=== PATIENT | female | born 1955 | race Caucasian/White ===

== ENCOUNTER → 2019-02-06 | Outpatient (REF) | payer OTHER ==
[2019-02-06 16:34] LABS: CALCIUM LEVEL 9.7 MG/DL (8.8-10.2); FREE T4 0.79 NG/DL (0.76-1.46); THYROID STIMULATING HORMONE 1.8 uIU/ML (0.358-3.740)
[2019-02-06 17:18] LABS: TOTAL 25(OH) VITAMIN D 42.3 NG/ML (30.0-100.0)
== END ==
LOC: M LABDRAW1 15:33
PROVIDERS: ATTEND Nurse Practitioner Family
DX: M81.0 Age-related osteoporosis without current pathological fracture (principal); E05.00 Thyrotoxicosis with diffuse goiter without thyrotoxic crisis or storm

== ENCOUNTER → 2020-02-26 | Outpatient (CLI) | payer SELFPAY | LOC: M LABSMTC 15:41 | PROVIDERS: ATTEND Pediatrics | DX: Z11.59 Encounter for screening for other viral diseases (principal) ==

== ENCOUNTER → 2020-05-12 | Outpatient (CLI) | payer OTHER ==
[2020-05-12 16:08] LABS: CALCIUM LEVEL 9.4 MG/DL (8.8-10.2); FREE T4 0.91 NG/DL (0.76-1.46); THYROID STIMULATING HORMONE 1.74 uIU/ML (0.358-3.740)
[2020-05-12 16:10] LABS: TOTAL 25(OH) VITAMIN D 51.8 NG/ML (30.0-100.0)
== END ==
LOC: M PLALAB 13:16
PROVIDERS: ATTEND Nurse Practitioner Family
DX: M81.0 Age-related osteoporosis without current pathological fracture (principal); E05.00 Thyrotoxicosis with diffuse goiter without thyrotoxic crisis or storm

== ENCOUNTER 2020-10-16 17:29 | Emergency (ER) | payer OTHER ==
[~2020-10-16] VITALS: Ht 162.6 cm; Wt 57.8 kg
[2020-10-16 21:46] VITALS: BP 159/85
== END 2020-10-16 22:03 | disposition home or self-care (01) ==
LOC: M ED 17:29
DX: R21 Rash and other nonspecific skin eruption (principal); J45.909 Unspecified asthma, uncomplicated; E05.00 Thyrotoxicosis with diffuse goiter without thyrotoxic crisis or storm; Z88.0 Allergy status to penicillin; Z88.1 Allergy status to other antibiotic agents; Z88.2 Allergy status to sulfonamides; Z88.8 Allergy status to other drugs, medicaments and biological substances

== ENCOUNTER → 2021-01-26 | Outpatient (CLI) | payer OTHER ==
--- NOTE | 2021-01-26 16:43 | DEXAMM ---
INDICATION: AGE RELATED OSTEOPOROSIS. COMPARISON: 01/11/2019. TECHNIQUE: Bone density was measured using dual-energy x-ray absorptiometry (DEXA). FINDINGS: AP SPINE L1-L4 BMD 0.850 g/cm2 Young Adult T-Score -2.8 Age Matched Z-Score -1.3. LT FEMUR, TOTAL BMD 0.866 g/cm2 Young Adult T-Score -1.1 Age Matched Z-Score 0.0. LT NECK BMD 0.763 g/cm2 Young Adult T-Score -2.0 Age Matched Z-Score -0.6. RT FEMUR, TOTAL BMD 0.845 g/cm2 Young Adult T-Score -1.3 Age Matched Z-Score -0.2. RT NECK BMD 0.754 g/cm2 Young Adult T-Score -2.0 Age Matched Z-Score -0.7. IMPRESSION: There is osteoporosis of the spine. There is low bone density of the left hip. There is low bone density of the right hip. The density of the spine has increased 0.6% since the initial exam on 01/11/2019. The density of the left hip has increased 0.3% since initial exam on 01/11/2019. The density of the right hip has increased 0.2% since the initial exam on 01/11/2019. FOLLOW-UP: Recommendation for the next bone density exam: 2 years. <Electronically signed by Derrek Rajan > 01/26/21 1640
== END ==
LOC: M WHC 12:54
PROVIDERS: ATTEND Nurse Practitioner Family
DX: M81.0 Age-related osteoporosis without current pathological fracture (principal); M85.89 Other specified disorders of bone density and structure, multiple sites

== ENCOUNTER → 2021-01-26 | Outpatient (CLI) | payer OTHER ==
[2021-01-26 15:56] LABS: BLOOD UREA NITROGEN 18 MG/DL (7-18); CALCIUM LEVEL 9.6 MG/DL (8.8-10.2); CARBON DIOXIDE LEVEL 31 MEQ/L (21-32); CHLORIDE LEVEL 100 MEQ/L (98-107); CREATININE FOR GFR 0.68 MG/DL (0.55-1.30); GLOMERULAR FILTRATION RATE > 60.0 (>45); GLUCOSE, FASTING 97 MG/DL (70-100); POTASSIUM SERUM 4.8 MEQ/L (3.5-5.1); SODIUM LEVEL 136 MEQ/L (136-145)
[2021-01-26 16:10] LABS: TOTAL 25(OH) VITAMIN D 43.6 NG/ML (30.0-100.0)
== END ==
LOC: M PLALAB 13:31
PROVIDERS: ATTEND Nurse Practitioner Family
DX: M81.0 Age-related osteoporosis without current pathological fracture (principal)

== ENCOUNTER 2021-03-26 12:55 | Emergency (ER) | payer OTHER ==
[~2021-03-26] VITALS: Ht 162.6 cm; Wt 62.1 kg
[2021-03-26] MEDS ORDERED: SERT50TA29 PO (13:11)
[2021-03-26] MEDS ORDERED: GABA-282 (13:11)
[2021-03-26] MEDS ORDERED: OLOP0.1D (13:11)
[2021-03-26] MEDS ORDERED: OYST500T12 (13:11)
[2021-03-26] MEDS ORDERED: FLUTISP (13:11)
[2021-03-26] MEDS ORDERED: XIID5DRO (13:11)
[2021-03-26] MEDS ORDERED: D31000TA2 (13:11)
[2021-03-26] MEDS ORDERED: FEXO180T58 (13:11)
[2021-03-26] MEDS ORDERED: MULTTAB61 (13:11)
[2021-03-26] MEDS ORDERED: REFRSOL (13:11)
[2021-03-26] MEDS ORDERED: TETRACAINE 0.5% OPHTH SOLN 4ML OS ONE (14:05)
[2021-03-26] MEDS ORDERED: FLUORESCEIN OPHTH 1 MG STRIP OS ONE (14:05)
[2021-03-26 14:57] VITALS: BP 143/82
== END 2021-03-26 15:07 | disposition home or self-care (01) ==
LOC: M ED 12:55
DX: H57.12 Ocular pain, left eye (principal); F41.9 Anxiety disorder, unspecified; Z88.0 Allergy status to penicillin; Z88.1 Allergy status to other antibiotic agents; Z88.8 Allergy status to other drugs, medicaments and biological substances; Z79.899 Other long term (current) drug therapy

== ENCOUNTER → 2021-04-23 | Outpatient (CLI) | payer OTHER ==
[~2021-04-23] MED LIST: D31000TA2; FEXO180T58; FLUTISP; GABA-282; MULTTAB61; OLOP0.1D; OYST500T12; REFRSOL; SERT50TA29 PO; XIID5DRO
[2021-04-23 16:02] LABS: FREE T4 0.78 NG/DL (0.76-1.46); THYROID STIMULATING HORMONE 1.86 uIU/ML (0.358-3.740)
== END ==
LOC: M PLALAB 13:50
PROVIDERS: ATTEND Internal Medicine Endocrinology, Diabetes & Metabolism
DX: E05.00 Thyrotoxicosis with diffuse goiter without thyrotoxic crisis or storm (principal)

== ENCOUNTER → 2021-05-28 | Outpatient (CLI) | payer OTHER ==
[~2021-05-28] MED LIST changes: -D31000TA2; +FEXO-117; -FEXO180T58; -OLOP0.1D; +OLOP5DRO16; +VITA100093
== END ==
LOC: M WHC 08:28
PROVIDERS: ATTEND Family Medicine
DX: Z12.31 Encounter for screening mammogram for malignant neoplasm of breast (principal)

== ENCOUNTER 2021-07-20 13:36 | Emergency (ER) | payer OTHER ==
[~2021-07-20] VITALS: Ht 162.6 cm; Wt 62.6 kg
[2021-07-20 13:39] VITALS: BP 146/70
[2021-07-20] MEDS ORDERED: LIDOCAINE 2% MDV 20ML VIAL SC ONE (18:25)
== END 2021-07-20 19:07 | disposition home or self-care (01) ==
LOC: M ED 13:36
DX: S61.011A Laceration without foreign body of right thumb without damage to nail, initial encounter (principal); W26.8XXA Contact with other sharp object(s), not elsewhere classified, initial encounter; Y92.018 Other place in single-family (private) house as the place of occurrence of the external cause; J45.909 Unspecified asthma, uncomplicated; E05.00 Thyrotoxicosis with diffuse goiter without thyrotoxic crisis or storm; Z79.899 Other long term (current) drug therapy; Z88.0 Allergy status to penicillin; Z88.1 Allergy status to other antibiotic agents; Z88.2 Allergy status to sulfonamides; Z88.8 Allergy status to other drugs, medicaments and biological substances

== ENCOUNTER → 2021-10-02 | Outpatient (CLI) | payer OTHER | LOC: M PLAIMG 14:29 | PROVIDERS: ATTEND Internal Medicine | DX: D16.9 Benign neoplasm of bone and articular cartilage, unspecified (principal) ==

== ENCOUNTER → 2022-04-27 | Outpatient (CLI) | payer OTHER ==
[2022-04-27 16:08] LABS: CALCIUM LEVEL 9.1 MG/DL (8.3-10.6); FREE T4 1.04 NG/DL (0.89-1.76); THYROID STIMULATING HORMONE 1.976 uIU/ML (0.55-4.78); TOTAL 25(OH) VITAMIN D 48.5 NG/ML (20.0-100.0)
== END ==
LOC: M PLALAB 13:35
PROVIDERS: ATTEND Nurse Practitioner Family
DX: M81.0 Age-related osteoporosis without current pathological fracture (principal); E05.00 Thyrotoxicosis with diffuse goiter without thyrotoxic crisis or storm

== ENCOUNTER → 2022-08-19 | Outpatient (CLI) | payer OTHER ==
[~2022-08-19] MED LIST changes: +FLUT50SP17; -FLUTISP; -OLOP5DRO16; +OLOP5DRO17
== END ==
LOC: M WHC 09:01
PROVIDERS: ATTEND Internal Medicine
DX: Z12.31 Encounter for screening mammogram for malignant neoplasm of breast (principal); R10.11 Right upper quadrant pain

== ENCOUNTER → 2023-01-17 | Outpatient (REF) | payer OTHER ==
[2023-01-17 18:32] LABS: ALBUMIN 4.2 G/DL (3.2-5.2); ALKALINE PHOSPHATASE 63 U/L (46-116); ALT/SGPT 18 U/L (7.0-40); AST/SGOT 14 U/L (<34); BILIRUBIN,TOTAL 0.6 MG/DL (0.3-1.2); BLOOD UREA NITROGEN 16 MG/DL (9-23); CALCIUM LEVEL 9.8 MG/DL (8.3-10.6); CARBON DIOXIDE LEVEL 26 MMOL/L (20-31); CHLORIDE LEVEL 98 MMOL/L (98-107); CHOLESTEROL LEVEL 237 MG/DL (<200); CHOLESTEROL RISK RATIO 2.94 (<5); CREATININE FOR GFR 0.59 MG/DL (0.55-1.30); GLOMERULAR FILTRATION RATE > 60.0 (>45); GLUCOSE, FASTING 117 MG/DL (74-106); HDL CHOLESTEROL 80.6 MG/DL (>40); LDL CHOLESTEROL 137.2 MG/DL (<100); NON-HDL-C 156.4 MG/DL; SODIUM LEVEL 133 MMOL/L (136-145); THYROID STIMULATING HORMONE 1.592 uIU/ML (0.55-4.78); TOTAL PROTEIN 7.2 G/DL (5.7-8.2); TRIGLYCERIDES LEVEL 96 MG/DL (<150)
== END ==
LOC: M PLALAB 17:24
PROVIDERS: ATTEND Internal Medicine
DX: E78.5 Hyperlipidemia, unspecified (principal); E05.00 Thyrotoxicosis with diffuse goiter without thyrotoxic crisis or storm

== ENCOUNTER → 2023-02-03 | Outpatient (CLI) | payer MEDICARE, OTHER ==
[2023-02-03 16:19] LABS: FREE T4 0.91 NG/DL (0.89-1.76)
[2023-02-03 16:21] LABS: THYROID STIMULATING HORMONE 2.354 uIU/ML (0.55-4.78)
== END ==
LOC: M PLALAB 12:56
PROVIDERS: ATTEND Internal Medicine Endocrinology, Diabetes & Metabolism
DX: E05.00 Thyrotoxicosis with diffuse goiter without thyrotoxic crisis or storm (principal)

== ENCOUNTER → 2023-02-24 | Outpatient (REF) | payer MEDICARE, OTHER ==
[~2023-02-24] MED LIST changes: -FLUT50SP17; +FLUTISP
== END ==
LOC: M SFHCWAGY 17:20
PROVIDERS: ATTEND Nurse Practitioner Family
DX: Z12.4 Encounter for screening for malignant neoplasm of cervix (principal); N95.2 Postmenopausal atrophic vaginitis
CPT/HCPCS: 87624; G0123

== ENCOUNTER → 2023-03-11 | Outpatient (CLI) | payer MEDICARE, OTHER | LOC: M WHC 10:05 | PROVIDERS: ATTEND Nurse Practitioner Family | DX: M81.0 Age-related osteoporosis without current pathological fracture (principal) ==

== ENCOUNTER → 2024-05-23 | Outpatient (CLI) | payer MEDICARE, OTHER ==
[~2024-05-23] MED LIST changes: -FEXO-117; +FEXO-193; +GABA-1172; -GABA-282
[2024-05-23 15:48] LABS: HEPATITIS B SURFACE ANTIGEN NEGATIVE (NEGATIVE)
[2024-05-23 16:02] LABS: HIV 1&2 SCREEN NEGATIVE (NEGATIVE)
[2024-05-23 16:10] LABS: HEPATITIS B CORE ANTIBODY IGM NEGATIVE (NEGATIVE)
[2024-05-23 16:32] LABS: Trichomonas vaginalis (AMP) NOT DETECTED (NEGATIVE)
[2024-05-23 16:57] LABS: GC DNA AMPLIFICATION NEGATIVE (NEGATIVE)
[2024-05-23 18:16] LABS: HEPATITIS C VIRUS ABY INDEX 0.03 INDEX (<0.8)
== END ==
LOC: M PLALAB 11:47
PROVIDERS: ATTEND Nurse Practitioner Family
DX: Z11.3 Encounter for screening for infections with a predominantly sexual mode of transmission (principal); Z11.59 Encounter for screening for other viral diseases; Z72.89 Other problems related to lifestyle

== ENCOUNTER → 2024-05-23 | Outpatient (CLI) | payer MEDICARE, OTHER | LOC: M WHC 11:58 | PROVIDERS: ATTEND Nurse Practitioner Family | DX: Z12.31 Encounter for screening mammogram for malignant neoplasm of breast (principal); R92.333 Mammographic heterogeneous density, bilateral breasts ==

== ENCOUNTER 2025-02-09 10:21 | Emergency (ER) | payer MEDICARE, OTHER ==
[~2025-02-09] VITALS: Ht 162.6 cm; Wt 59.5 kg
[~2025-02-09 10:21] MED LIST changes: +LIFI1DRO4; -XIID5DRO
[2025-02-09 10:33] VITALS: TEMP 96.1
[2025-02-09] MEDS: TETANUS/DIPHTH/ACEL. PERTUSSIS 0.5 ML SYR IM ONE (13:07)
[2025-02-09 13:37] VITALS: O2SAT 99
[2025-02-09 13:45] VITALS: BP 162/94
== END 2025-02-09 13:48 | disposition home or self-care (01) ==
LOC: M ED 10:21 → EDBD 10:21 → M ED 13:48
DX: S01.01XA Laceration without foreign body of scalp, initial encounter (principal); Y92.019 Unspecified place in single-family (private) house as the place of occurrence of the external cause; Y93.9 Activity, unspecified; Y99.9 Unspecified external cause status; Y04.2XXA Assault by strike against or bumped into by another person, initial encounter; J45.909 Unspecified asthma, uncomplicated; F41.9 Anxiety disorder, unspecified; Z23 Encounter for immunization; Z88.0 Allergy status to penicillin; Z88.2 Allergy status to sulfonamides; Z88.8 Allergy status to other drugs, medicaments and biological substances; Z79.899 Other long term (current) drug therapy; Z79.810 Long term (current) use of selective estrogen receptor modulators (SERMs)